=== PATIENT | female | born 1945 | race Caucasian/White ===

== ENCOUNTER → 2019-06-20 | Outpatient (CLI) | payer OTHER | LOC: RAD 14:18 | DX: J44.9 Chronic obstructive pulmonary disease, unspecified (principal) ==

== ENCOUNTER 2019-08-08 12:20 | Inpatient (IN) | payer OTHER ==
[~2019-08-08] VITALS: Ht 149.9 cm; Wt 65.8 kg
[2019-08-08 12:22] VITALS: BP 152/75
[2019-08-08 13:16] LABS: HEMOGLOBIN 13.8 gm/dL (12.0-15.0); MCH 27.6 pg (26.0-34.0); MCV 86.1 fL (80.0-100.0); RBC 4.99 mil/uL (4.20-5.00); WBC 7.9 thou/uL (4.0-11.0)
[2019-08-08 13:47] LABS: ANION GAP 6 mmol/L (7-16); BUN 15 mg/dL (7-18); CALCIUM 9.8 mg/dL (8.5-10.1); CHLORIDE 94 mmol/L (98-107); CO2 34 mmol/L (21-32); CREATININE 0.9 mg/dL (0.6-1.0); GLUCOSE 133 mg/dL (74-106); SODIUM 134 mmol/L (136-145)
[2019-08-08 13:56] LABS: TROPONIN-I <0.06 ng/mL (<0.06)
[2019-08-08 14:30] LABS: BE(vivo) 2.5 mmol/L (-2 to +3); HCO3 29.7 mmol/L (22.0-26.0); PCO2 57.1 mmHg (35.0-45.0); pH 7.334 (7.360-7.450); sO2 91.7 % (92.0-98.0)
[2019-08-08] MEDS ORDERED: PROAIR HFA8.5 GM INH (14:45)
[2019-08-08] MEDS ORDERED: ALLEGRA ALLERG180 MG PO (14:45)
[2019-08-08] MEDS ORDERED: ASA81BEC PO (14:46)
[2019-08-08] MEDS ORDERED: BREO ELLIPTA 11 EACH INH (14:47)
[2019-08-08] MEDS ORDERED: DICYCLOMINE HCL20 MG PO (14:49)
[2019-08-08] MEDS ORDERED: CADUET 5 MG-101 EACH PO (14:49)
[2019-08-08] MEDS ORDERED: PREVACID30 MG PO (14:53)
[2019-08-08] MEDS ORDERED: CHILDREN'S15 MG/1 M2 PO (14:53)
[2019-08-08] MEDS ORDERED: FUROSEMIDE 40 M40 M1 PO (14:53)
[2019-08-08] MEDS ORDERED: LEVO-T75 MCG PO (14:54)
[2019-08-08] MEDS ORDERED: LORAZEPAM 0.50.5 MG PO (14:57)
[2019-08-08] MEDS ORDERED: TOPROL XL50 MG PO (14:58)
[2019-08-08] MEDS ORDERED: VITAMIN C100 MG PO (14:59)
[2019-08-08] MEDS ORDERED: SPIRIVA18 MCG INH (14:59)
[2019-08-08 15:39] VITALS: BP 116/63
[2019-08-08 16:16] VITALS: BP 116/62
[2019-08-08 16:42] VITALS: BP 139/65
--- NOTE | 2019-08-08 18:30 | NUR ---
PATIENT ADMITTED TO ROOM AT THIS TIME. SHE IS ALERT ORIENTED X4. ON 9L OF OXYGEN AND OXYGEN SATS HAVE REMAINED RIGHT ABOUT 90%. SHE IS CURRENTLY EATING AND WILL RECHECK WHEN SHE IS DONE EATING. UP AD AMALIA. GAIT IS STEADY. SHE IS PLEASANT WITH CARE.
[2019-08-08 20:30] VITALS: BP 127/65
[2019-08-09 00:30] VITALS: BP 136/71
[2019-08-09 05:20] VITALS: BP 117/81
[2019-08-09 05:42] LABS: CALCIUM 8.8 mg/dL (8.5-10.1); CREATININE 0.8 mg/dL (0.6-1.0); MAGNESIUM 2.3 mg/dL (1.8-2.4)
--- NOTE | 2019-08-09 05:44 | NUR ---
PATIENT IS ADVANCING SLOWLY IN HER CARE PLAN. VITAL SIGNS STABLE WITH PATIENT HAVING NO COMPLAINTS OF PAIN OR NAUSEA. FULLY ORIENTED, PATIENT IS ABLE TO CALL APPROPRIATELY FOR NEEDS AND CONTRIBUTE TO HER CARE PLAN. BREATHING STABLE EVIDENCED BY ASSESSMENT AND SPOT OXYGENATION CHECKS. UP MULTIPLE TIMES WITH ASSISTANCE, PATIENT IS CONSIDERED A HIGH FALL RISK. CONTINUE PLAN OF CARE.
[2019-08-09 07:33] VITALS: BP 124/73
[2019-08-09 08:19] LABS: BE(vivo) 3.6 mmol/L (-2 to +3); HCO3 29.7 mmol/L (22.0-26.0); PCO2 51.2 mmHg (35.0-45.0); PO2 56.1 mmHg (80.0-100.0); pH 7.381 (7.360-7.450); sO2 88.3 % (92.0-98.0)
--- NOTE | 2019-08-09 08:28 | EKG ---
[address] [place] [address] ELECTROCARDIOGRAM REPORT Name: KIMMY DUNCANER Room #: 364-P ADM IN M.R.#: [id number] Admission: 08/08/19 Attend Phys: Flako Gupta MD Discharge: Date of : 41 Report #: [id number] THIS REPORT FOR: //name// [facility] ED Test Date: 2019-08-08 Test Time: 13:43:04 Pat Name: KIMMY DUNCAN Department: Room: 364 Gender: F Mobile Equipment Mechanic: [facility] : 1945 Requested By: Aniket Marmolejo Order Number: [id number] MD: Eulogio Avila Measurements Intervals [place] Rate: 99 P: 85 MO: 160 QRS: 57 QRSD: 77 T: 73 QT: 318 QTc: 408 Interpretive Statements Sinus tachycardia Atrial premature complex Compared to ECG 12/28/2007 23:11:49 Atrial premature complex(es) now present Supraventricular tachycardia no longer present Electronically Signed On 08-09-2019 8:27:28 JOURNEYMAN POWERHOUSE OPERATOR by Eulogio Avila [email or web address] <ELECTRONICALLY SIGNED> By: Eulogio Avila MD, [facility] 08/09/19 0827 [id number] Eulogio Avila MD, [facility] /EPI
--- NOTE | 2019-08-09 13:06 | NUR ---
INITIAL ASSESSMENT: Received consult. OMAR reviewed chart and spoke with nursing and attending physician. Pt was admitted from home due to SOA/Weakness. Pt with hx of COPD. Pt is currently on IV abx and IV steroids. Pt is on 9L O2 via NC. OMAR met with pt at bedside. Introduced role of SW. Pt is alert/orientated x 4. Pt reports she lives alone in an apt. Pt's apartment complex has an elevator. Pt does not have to navigate any stairs. Pt has a cane to assist with ambulation. Pt states that she is normally on 6L of O2 at home and 8L with activity when she is outside of her apt. Pt has used [facility] in the past. No hx of post-acute placement. Pt's PCP is at the [facility]. OMAR is following to assist as needed with discharge planning.
--- NOTE | 2019-08-09 16:15 | NUR ---
Assumed care approx. 0700 this AM. Patient has been on 9LNC and still SOB with exertion when traveling to the bathroom and back. SR w/ PACs noted on the monitor. Home metoprolol dose reordered. No other changes at this time. Patient stagnant on progressing toward plan of care as patient 02 requirement is still higher than baseline which is 6LNC per pt report.
[2019-08-09 16:29] VITALS: BP 131/72
[2019-08-10 04:08] VITALS: BP 139/69
--- NOTE | 2019-08-10 04:58 | NUR ---
PATIENT IS PROGRESSING SLOWLY IN HER CARE PLAN. VITAL SIGNS STABLE WITH PATIENT HAVING NO COMPLAINTS OF PAIN OR NAUSEA. FULLY ORIENTED, PATIENT IS SHANNON TO CALL APPROPRIATELY FOR NEEDS. SHE HAS EXHIBITED ANXIETY. BREATHING STABLE ON OXYGEN VIA NASAL CANNULA EVIDENCED BY ASSESSMENT AND SPOT OXYGENATION CHECKS. UP MULTIPLE TIMES WITH ASSISTANCE INCIDENT FREE. CONTINUE PLAN OF CARE.
[2019-08-10 07:40] VITALS: BP 147/123
--- NOTE | 2019-08-10 14:56 | NUR ---
SW reviewed chart and spoke with nursing and attending physician. Pt remains on 9L of O2. Pt's base line is 6L. No weekend discharge planned. Therapy to evaluate pt when she is able to participate. SW is following to assist as needed with discharge planning.
[2019-08-10 15:16] VITALS: BP 128/102
[2019-08-10 19:21] VITALS: BP 11/61
[2019-08-11 04:11] VITALS: BP 105/50
[2019-08-11 05:49] LABS: BE(vivo) 3.8 mmol/L (-2 to +3); PCO2 67.5 mmHg (35.0-45.0); PO2 132.8 mmHg (80.0-100.0); pH 7.294 (7.360-7.450); sO2 98.3 % (92.0-98.0)
[2019-08-11 05:59] LABS: CALCIUM 9.1 mg/dL (8.5-10.1); CREATININE 0.8 mg/dL (0.6-1.0); POTASSIUM 5.1 mmol/L (3.5-5.1)
--- NOTE | 2019-08-11 07:09 | NUR ---
ASSUMED CARE OF PT AT 1900. A&O, COOPERATIVE WITH TX. CONTINUES TO REQUIRE 9L O2. CRITICAL ABG RESULT THIS MORNING, CALLED TO VERIFICATION SPECIALIST. NO NEW ORDERS AT THIS TIME. REQUESTED ANXIETY MED BEFORE TRYING TO SLEEP. REQUESTED PAIN MED FOR SORE THROAT, PROVIDED, FULL RELIEF. PROGRESSING SLOWLY TOWARDS POC GOALS. WILL CONTINUE TO PROVIDE CARE AND MONITOR.
[2019-08-11 07:50] VITALS: BP 151/75
[2019-08-11 11:53] VITALS: BP 147/69
--- NOTE | 2019-08-11 17:17 | NUR ---
ASSUMED CARE OF PT AT 0700. PT AOX4 VERY ANXIOUS THIS AM, VOICING MANY CONCERNS, UNRELATED TO PATIENT CARE. FINDING GOOD RELIEF WITH LORAZEPAM. UP W/ SBA. IV ABX INFUSING PER ORDER. MAINTAINING SPO2 ON 9L NC. SLOW PROGRFESS TOWARD POC GOALS. CALLS APPROPROIATELY. WILL CONT TO MONITOR.
[2019-08-11 19:17] VITALS: BP 148/81
[2019-08-12] VITALS (7 sets, daily range): BP systolic 129–152; BP diastolic 66–125
--- NOTE | 2019-08-12 03:39 | NUR ---
Patient remains on 9L o2 via nasal canula. Nursing will continue to monitor.
[2019-08-12 04:16] LABS: HEMATOCRIT 39.3 % (37.0-47.0); HEMOGLOBIN 12.5 gm/dL (12.0-15.0); MCH 27.9 pg (26.0-34.0); MCHC 31.7 g/dL (28.0-37.0); MCV 88.2 fL (80.0-100.0); RBC 4.46 mil/uL (4.20-5.00); RDW 13.9 % (10.5-14.5); WBC 8.5 thou/uL (4.0-11.0)
[2019-08-12 04:39] LABS: CALCIUM 9.2 mg/dL (8.5-10.1); CREATININE 0.8 mg/dL (0.6-1.0); POTASSIUM 4.4 mmol/L (3.5-5.1)
--- NOTE | 2019-08-12 18:00 | NUR ---
pt is A&OX3, PT is continuing IV ABX and o2 9L/MIN/NC, PT has SOB with activities,pt still has caughing, pt gets up to bathroom with assit, pt denies pain at this time.
[2019-08-13 03:25] VITALS: BP 141/85
--- NOTE | 2019-08-13 03:29 | NUR ---
Pt. slept some during the night. O2 at 8L/HF with O2 sat in the low 90's. Shortness of breath with exertion. Up with stand by assist to bathroom. Voiding per toilet. Bed alarm on for safety , calls appropriately for assistance. Anxiety med given with relief. Slowly making progress towards care plan goals.
[2019-08-13 07:16] VITALS: BP 150/78
--- NOTE | 2019-08-13 13:59 | NUR ---
SW reviewed chart and spoke with nursing and attending physician. Pt remains on 8-10L of O2 via NC. Pt is on IV abx/IV steroids. [facility] when a bed is available. SW is following to assist as needed with discharge planning.
[2019-08-13 16:25] VITALS: BP 156/72
--- NOTE | 2019-08-13 16:31 | NUR ---
pt is A&OX3, PT has medication for anxiety at 0830am, after then , pt feels relaxing, pt's o2 has reducing to 8L /MIN/NC from 9L/MIN/NC, PT still has SOB with activities, pt gets up to bathroom with assist, pt is continuing iv abx, pt denies pain and n/v at this time.
[2019-08-13 19:45] VITALS: BP 153/92
[2019-08-14 05:37] VITALS: BP 161/69
--- NOTE | 2019-08-14 06:13 | NUR ---
Medicated for anxiety x1 with good relief. She stated she slept well last night. Maintaining O2 sat in the low to mid 90's on 8L/HF. Shortness of breath with exertion but getting better per pt. Up with assist to bathroom. Making progress towards care plan goals.
[2019-08-14 07:08] LABS: HEMATOCRIT 39.5 % (37.0-47.0); HEMOGLOBIN 12.5 gm/dL (12.0-15.0); MCH 27.7 pg (26.0-34.0); MCHC 31.5 g/dL (28.0-37.0); MCV 87.7 fL (80.0-100.0); RBC 4.5 mil/uL (4.20-5.00); RDW 14.3 % (10.5-14.5); WBC 7.6 thou/uL (4.0-11.0)
[2019-08-14 07:16] VITALS: BP 151/73
[2019-08-14 07:18] LABS: CALCIUM 9.2 mg/dL (8.5-10.1); CREATININE 0.7 mg/dL (0.6-1.0); POTASSIUM 4.1 mmol/L (3.5-5.1)
[2019-08-14 07:33] LABS: BE(vivo) 10.6 mmol/L (-2 to +3); HCO3 38.1 mmol/L (22.0-26.0); PCO2 64.8 mmHg (35.0-45.0); PO2 98.5 mmHg (80.0-100.0); pH 7.387 (7.360-7.450); sO2 97.2 % (92.0-98.0)
--- NOTE | 2019-08-14 14:58 | NUR ---
OMAR reviewed chart and spoke with nursing and attending physician. Pt is slowly progressing towards goals for discharge. Pt is on 8L of continuous O2. Pt remains on IV abx and IV steroids. SW met with pt at bedside to discuss discharge plan. SW discussed possible 5N eval. Pt declines and states that she is hoping to go home when medically stable. Pt is agreeable with HH services. OMAR updated attending physician. Pt has used [facility] in the past. Pt's home O2 is provided by [facility]. OMAR is following to assist as needed with discharge planning.
[2019-08-14 15:49] VITALS: BP 139/83
--- NOTE | 2019-08-14 17:45 | NUR ---
assumed care of pt at 0700. pt aox4 in no acute distress. anxious this am - relieved with lorazepam. breathing improving. remains on 8lnc. lung sounds improving. will cont to monitor.
[2019-08-14 19:38] VITALS: BP 153/76
--- NOTE | 2019-08-15 04:00 | NUR ---
Pt. slept fair during the night. Anxiety med given x 1 this shift with good results. O2 at 8L/HF , verbalized improvement in breathing and stated she recovers easily whenever she gets short of breath with exertion. Up with SBA to bathroom. Bed alarm on for safety,she calls appropriately. Making progress towards care plan goals.
[2019-08-15 04:28] VITALS: BP 170/99
[2019-08-15 07:05] VITALS: BP 145/76
--- NOTE | 2019-08-15 11:53 | NUR ---
Nutrition: pt admitted with SOA, severe COPD and seen due to LOS. Pt eating well on heart healthy diet, 50-100% of meals. Majority of meals > 75%. Reports stable weights. Noted pt was edentulous. Has dentures at bedside but states she doesn't wear them to eat. Reports some difficulty chewing meats and agrees mechanical soft diet will be better consistency. RD will order. Low risk.
--- NOTE | 2019-08-15 14:20 | NUR ---
OMAR reviewed chart and spoke with nursing and attending physician. Pt remains on IV abx and IV steroids. Pt is on 8L of continuous O2. Plan is for pt to discharge home when medically stable. Pt would benefit from services or outpatient pulmonary rehab at time of discharge. OMAR is following to assist as needed with discharge planning.
[2019-08-15 15:10] VITALS: BP 138/77
[2019-08-15 19:41] VITALS: BP 163/74
--- NOTE | 2019-08-16 00:38 | NUR ---
PATIENT ASSESSED AND IS ANXIOUS ABOUT HER 02 AT 6LNC. INCREASED IT TO 8LNC. SKIN WARM AND DRY. RESP EVEN AND UNLABORED. 02 SAT WAS 95% ON 6LNC. PATIENT WANTED IT TO 8LNC. LEFT ARM SL HEALTHY, FLUSHES WELL. HAS NO SKIN ISSUES. TELE- SHOWS NSR. DENIES ANY CHEST PAIN. AND NO TOTHER PAIN. UP WITH STAND-BY ASSIST TO BATHROOM VOIDING WELL. HAD A MEDIUM BM. IS ALERT X 4. WILL BE DC IN 1-2 DAYS. LUNGS COURSE BILATERALLY. 02 AT 8LNC 02 SAT 97% REQUESTED ANXIETY MEDICATION, AND HAS BEEN SLEEPING EVER SINCE. CONT TO [facility] FOR CHANGES. CONT PLAN OF CARE.ABDOMEN SOFT WITH + BS.
[2019-08-16 04:56] VITALS: BP 151/90
[2019-08-16 07:43] VITALS: BP 156/80
--- NOTE | 2019-08-16 13:53 | NUR ---
SW reviewed chart and spoke with nursing and attending physician. Pt is slowly progressing towards goals for discharge. Pt on IV steroids/IV abx. Pt down to 7L of O2. SW met with pt at bedside to discuss discharge plan. Pt is agreeable with HH referral. Pt is not interested in post-acute placement. Pt has used [facility] in the past and would like to use them again. urban planner to fax referral to [facility]. SW is following to assist as needed with discharge planning.
--- NOTE | 2019-08-16 14:06 | NUR ---
DISCHARGE PLANNING. ANTICIPATED WEEKEND DISCHARGE. HOME HEALTH RECOMMENDED AT DISCHARGE. PATIENT REFERRAL FAXED TO [facility], VERIFIED RECEIVED. AWAITING RESPONSE. FOLLOWING.
--- NOTE | 2019-08-16 15:21 | NUR ---
Assumed care approx. 0700 this AM. Patient ALOX4-continues to constantly remain anxious about medications and what level of oxygen she is on. Patient reassured and questions answered. Pt titrated to 7LNC as of right now. SR on the monitor. Small BM noted today per report from PT. Pt changed from med-surg tele status to med-surg; cont. cardiac monitoring dc'd. Per case management notes, the patient is working towards a weekend discharge. Will continue to monitor. Pt slowly progressing toward plan of care goals.
[2019-08-16 16:04] VITALS: BP 150/89
[2019-08-16 19:46] VITALS: BP 148/76
[2019-08-17 04:41] VITALS: BP 150/79
--- NOTE | 2019-08-17 06:48 | NUR ---
PATIENT IS ADVANCING IN HER CARE PLAN. VITAL SIGNS STABLE WITH PATIENT HAVING NO COMPLAINTS OF PAIN OR NAUSEA. FULLY ORIENTED, PATIENT IS ABLE TO CALL FOR NEEDS AND PARTICIPATE IN CARE. BREATHING STABLE ON SEVEN LITERS OXYGEN EVIDENCED BY ASSESSMENT AND SPOT OXYGENATION CHECKS. PATIENT IS SOA WITH ACTIVITY. UP MULTIPLE TIMES TO RESTROOM WITH ASSISTANCE INCIDENT FREE. POSSIBLE DISCHARGE SOON. CONTINUE PLAN OF CARE.
[2019-08-17 08:05] VITALS: BP 164/89
[2019-08-17 12:57] VITALS: BP 164/85
[2019-08-17 14:09] VITALS: BP 164/85
[2019-08-17] MEDS ORDERED: PEPCID20 MG PO ×2 (14:27→15:59)
[2019-08-17] MEDS ORDERED: PREDNISONE 10 M10 M1 PO ×2 (14:27→15:59)
--- NOTE | 2019-08-17 14:54 | NUR ---
DISCHARGE NOTE: SW reviewed chart and spoke with nursing and attending physician. Pt is medically stable for discharge home today with services. SW met with pt and son at bedside to discuss discharge plan. Both agreeable with plan. supply planner to fax discharge orders/summary to [facility] when available. Contact info for [facility] placed in pt's discharge summary. Pt's son to provide transportation home. No additional SW needs identified at this time, but is available to assist should needs arise.
[2019-08-17 15:02] VITALS: BP 140/68
[2019-08-17 15:05] VITALS: BP 164/85
== END 2019-08-17 15:42 | disposition home health service (06) | DRG 189 ==
LOC: ER 12:20 → EROBS 15:31 → 3W 15:31 → ENTRNSPT 08-17 15:32 → EDTRNSPTSTS 08-17 15:34 → 3W 08-17 15:42
PROVIDERS: Emergency Medicine; Internal Medicine Pulmonary Disease; ADMIT Internal Medicine
DX: J96.21 Acute and chronic respiratory failure with hypoxia (principal); J44.1 Chronic obstructive pulmonary disease with (acute) exacerbation; E87.2 Acidosis; K58.9 Irritable bowel syndrome, unspecified; K44.9 Diaphragmatic hernia without obstruction or gangrene; I10 Essential (primary) hypertension; K57.90 Diverticulosis of intestine, part unspecified, without perforation or abscess without bleeding; K64.9 Unspecified hemorrhoids; F17.210 Nicotine dependence, cigarettes, uncomplicated; J96.22 Acute and chronic respiratory failure with hypercapnia; E78.5 Hyperlipidemia, unspecified; G47.00 Insomnia, unspecified; F41.1 Generalized anxiety disorder; J30.9 Allergic rhinitis, unspecified; E03.9 Hypothyroidism, unspecified; I87.2 Venous insufficiency (chronic) (peripheral); I25.10 Atherosclerotic heart disease of native coronary artery without angina pectoris; Z86.718 Personal history of other venous thrombosis and embolism; Z79.01 Long term (current) use of anticoagulants; Z99.81 Dependence on supplemental oxygen; Z87.01 Personal history of pneumonia (recurrent); Z98.62 Peripheral vascular angioplasty status; Z79.82 Long term (current) use of aspirin; Z79.899 Other long term (current) drug therapy; Z88.5 Allergy status to narcotic agent; Z88.8 Allergy status to other drugs, medicaments and biological substances; Z90.49 Acquired absence of other specified parts of digestive tract; Z82.3 Family history of stroke; Z91.14 Patient's other noncompliance with medication regimen
CPT/HCPCS: 10080; 10879

== ENCOUNTER → 2020-04-16 | Outpatient (CLI) | payer OTHER ==
[~2020-04-16] MED LIST: ALLEGRA ALLERG180 MG PO; ASA81BEC PO; BREO ELLIPTA 11 EACH INH; CADUET 5 MG-101 EACH PO; CHILDREN'S15 MG/1 M2 PO; DICYCLOMINE HCL20 MG PO; FUROSEMIDE 40 M40 M1 PO; LEVO-T75 MCG PO; LORAZEPAM 0.50.5 MG PO; PEPCID20 MG PO; PREDNISONE 10 M10 M1 PO; PREVACID30 MG PO; PROAIR HFA8.5 GM INH; SPIRIVA18 MCG INH; TOPROL XL50 MG PO; VITAMIN C100 MG PO
== END ==
LOC: SJCVCIMAG 08:03
PROVIDERS: ATTEND Internal Medicine Cardiovascular Disease
DX: I73.9 Peripheral vascular disease, unspecified (principal); M79.605 Pain in left leg; Z95.828 Presence of other vascular implants and grafts; Z79.899 Other long term (current) drug therapy; Z87.891 Personal history of nicotine dependence

== ENCOUNTER → 2020-06-12 | Outpatient (CLI) | payer OTHER | LOC: SJCVC 16:00 | PROVIDERS: ATTEND Internal Medicine Cardiovascular Disease | DX: I25.10 Atherosclerotic heart disease of native coronary artery without angina pectoris (principal); J44.9 Chronic obstructive pulmonary disease, unspecified; E78.00 Pure hypercholesterolemia, unspecified; I73.9 Peripheral vascular disease, unspecified; I10 Essential (primary) hypertension; Z99.81 Dependence on supplemental oxygen ==